=== PATIENT | male | born 1990 | race Caucasian/White ===

== ENCOUNTER 2018-03-26 01:53 | Emergency (ER) | payer BC ==
[2018-03-26] MEDS ORDERED: Lidocaine 1% PF 5 ML VIAL ONE (02:12)
[2018-03-26] MEDS ORDERED: Adacel (T-DAP) 0.5 ML VIAL ONE (02:22)
[2018-03-26] MEDS ORDERED: HYDROcodone/Acetaminophen 10/325 mg Tablet ONE (02:47)
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
== END 2018-03-26 03:24 | disposition home or self-care (01) ==
LOC: ERS 01:53
DX: S61.212A Laceration without foreign body of right middle finger without damage to nail, initial encounter (principal); S60.512A Abrasion of left hand, initial encounter; S60.511A Abrasion of right hand, initial encounter; Z23 Encounter for immunization; F17.210 Nicotine dependence, cigarettes, uncomplicated; Z71.6 Tobacco abuse counseling; W23.0XXA Caught, crushed, jammed, or pinched between moving objects, initial encounter
CPT/HCPCS: 12002; 90471; 90715; 99406; J2001

== ENCOUNTER 2018-12-21 08:19 | Outpatient (CLI) | payer BC ==
--- NOTE | 2018-12-21 10:24 | CT ---
CT OF ABDOMEN AND PELVIS: DATE: 12/21/2018. COMPARISON: None. HISTORY: Nausea and vomiting, weight loss. TECHNIQUE: Axial CT imaging at 5 mm intervals from lung bases through pubic symphysis with IV and oral contrast. Coronal reformatted imaging obtained. FINDINGS: The imaged lung bases are unremarkable. There is no free intraperitoneal air or fluid seen. The liver, gallbladder, spleen, pancreas, adrenal glands, and kidneys appear unremarkable. No evidence for bowel inflammatory change or bowel obstruction. The appendix appears grossly unremar kable. The vascular structures of the abdomen and pelvis appear patent. No lymphadenopathy is noted within the pelvis, the mesentery, or the retroperitoneum. Review of the osseous structures demonstrates no acute findings. IMPRESSION: Unremarkable CT examination of the abdomen and pelvis. POS: [facility]
== END 2018-12-21 08:20 | disposition home or self-care (01) ==
LOC: BICCT 08:19
PROVIDERS: ATTEND Internal Medicine
DX: R11.2 Nausea with vomiting, unspecified (principal)
CPT/HCPCS: 74177

== ENCOUNTER 2020-04-28 14:31 | Emergency (ER) | payer BC, OTHER | END 2020-04-28 16:40 | disposition left against medical advice (07) | LOC: ERS 14:31 | DX: Z53.21 Procedure and treatment not carried out due to patient leaving prior to being seen by health care provider (principal) ==